=== PATIENT | female | born 1985 | race Caucasian/White ===

== ENCOUNTER 2019-07-18 14:42 | Inpatient (IN) ==
[2019-07-18 15:37] LABS: Basophils % 0.3 % (0.0-0.8); Eosinophils % 0.3 % (0.00-10.9); Hematocrit 42.4 VOL% (35.7-47.0); Hemoglobin 13.8 GM/DL (12.0-16.0); Immature Granulocytes % 0.6 %; Immature Granulocytes Absolute 0.07 #; Lymphocytes # 2.2 10*3/uL (1.4-4.0); Lymphocytes % 17.9 % (21.3-54.2); Mean Corpuscular HGB Conc 32.5 GM/DL (32-36); Mean Corpuscular Volume 94.6 FL (87-102); Mean Platelet Volume 9.7 FL (9.6-12.0); Monocytes % 7.4 % (1.7-12.7); Neutrophils % 73.5 % (38.7-73.9); Platelet Count 257 T/CUMM (130-400); Red Blood Count 4.48 MC/CUMM (3.8-5.5); White Blood Count 12.4 T/CUMM (4-12)
[2019-07-18 15:54] LABS: Albumin 3.5 G/DL (3.4-5.0); Bilirubin,Total 0.9 MG/DL (0.2-1.0); Osmolality,Calculated 277.4 MOS/KG (273-304); Total Protein 7.7 G/DL (6.4-8.3)
[2019-07-18 16:18] LABS: Apearance,Urine Slightly Hazy (Clear); Bacteria,Urine Occasional /HPF (Few); Bilirubin,Urine Negative (Negative); Blood, Urine Small mg/dL (Negative); Glucose,Urine (UA) Negative (Negative); Ketones,Urine 5 mg/dL (Negative); Mucus,Urine Occasional /LPF (Occasional); Nitrite,Urine Negative (Negative); Protein,Urine Negative; RBC,Urine <1 /HPF (0-4); Squamous Epithelial Cell,Urine Few /HPF (0-10); Urine Color Yellow (Yellow); Urine Specific Gravity 1.016 (1.001-1.035); Urine Urobilinogen < 2.0 EU/DL (0.2-1.0)
[2019-07-18] MEDS ORDERED: PIPERACILLIN/TAZOBACTAM 3,375 MG in SODIUM CHLORIDE 0.9% 100 ML IV STA ×2 (17:16→17:18)
[2019-07-18] MEDS ORDERED: ACETAMINOPHEN 325 MG TABLET PO PRN (17:23)
[2019-07-18] MEDS ORDERED: ONDANSETRON 4 MG/2 ML VIAL IV PRN (17:23)
[2019-07-18] MEDS: LACTATED RINGERS 1,000 ML IV SCH (17:29)
[2019-07-18] MEDS: PIPERACILLIN/TAZOBACTAM 3,375 MG in SODIUM CHLORIDE 0.9% 100 ML IV SCH (19:00)
[2019-07-19] MEDS: PIPERACILLIN/TAZOBACTAM 3,375 MG in SODIUM CHLORIDE 0.9% 100 ML IV SCH ×3 (01:21→17:55)
[2019-07-19] MEDS: LACTATED RINGERS 1,000 ML IV SCH ×5 (06:01→20:19)
[2019-07-19] MEDS ORDERED: BUPIVACAINE 0.25% /EPI 10 ML VIAL ONE (06:46)
[2019-07-19] MEDS ORDERED: LIDOCAINE MPF 1% /EPI 30 ML VIAL ONE (06:46)
[2019-07-19] MEDS ORDERED: TISSUE ADHESIVE 1 EACH APPLICATOR TOP ONE (06:47)
[2019-07-19] MEDS: PANTOPRAZOLE 40 MG TABLET PO SCH (08:39)
[2019-07-19] MEDS ORDERED: DESFLURANE 1 UNIT/15 MINUTE INH ONE (13:28)
[2019-07-19] MEDS ORDERED: propofoL 200 MG/20 ML VIAL IV ONE (13:28)
[2019-07-19] MEDS ORDERED: GLYCOPYRROLATE 0.4 MG/2 ML VIAL ONE (13:29)
[2019-07-19] MEDS ORDERED: MIDAZOLAM 2 MG/2 ML VIAL ONE (13:29)
[2019-07-19] MEDS ORDERED: ONDANSETRON 4 MG/2 ML VIAL ONE (13:29)
[2019-07-19] MEDS ORDERED: ROCURONIUM 100 MG/10 ML VIAL IV ONE (13:29)
[2019-07-19] MEDS ORDERED: NEOSTIGMINE 10 MG/10 ML VIAL ONE (13:29)
[2019-07-19] MEDS ORDERED: fentaNYL 100 MCG/2 ML VIAL ONE (13:29)
[2019-07-19] MEDS ORDERED: LACTATED RINGERS 1,000 ML IV ONE (13:29)
[2019-07-19] MEDS ORDERED: ONDANSETRON 4 MG/2 ML VIAL IV PRN (13:48)
[2019-07-19] MEDS: HYDROmorphone 2 MG/1 ML VIAL IV PRN ×2 (13:55→14:00)
[2019-07-20] MEDS: PIPERACILLIN/TAZOBACTAM 3,375 MG in SODIUM CHLORIDE 0.9% 100 ML IV SCH ×2 (01:50→08:42)
[2019-07-20] MEDS: LACTATED RINGERS 1,000 ML IV SCH ×3 (05:22→10:54)
[2019-07-20 07:47] VITALS: BP 129/64
[2019-07-20] MEDS: PANTOPRAZOLE 40 MG TABLET PO SCH (08:42)
== END 2019-07-20 12:07 | disposition home or self-care (01) | DRG 418 ==
LOC: N.ED 14:42 → N.EDINP 17:23 → N.3E 18:13
PROVIDERS: ADMIT Surgery; ATTEND Surgery
PROC: LAPCHOL (2019-07-19 11:44)